=== PATIENT | female | born 1990 | race African-American/Black ===

== ENCOUNTER 2017-04-07 13:21 | Emergency (ER) | payer OTHER ==
[~2017-04-07 13:21] MED LIST: METRONIDAZOLE PO; NITROFURANTOIN100 M3 PO; NO MEDICATIONS; ROBAXIN500 MG PO; VOLTAREN50 MG PO; ZITHROMAX PO; ZOFRAN ODT4 MG PO
[2017-04-07] MEDS ORDERED: NO MEDICATIONS (13:24)
[2017-04-07 14:18] LABS: URINE SOURCE CLEAN CATCH
[2017-04-07 14:43] LABS: URINE APPEARANCE CLEAR; URINE BILIRUBIN NEG (NEG); URINE BLOOD NEG (NEG); URINE COLOR YELLOW; URINE GLUCOSE NEG (NORM); URINE KETONE NEG (NEG); URINE LEUKOCYTE ESTERASE NEG (NEG); URINE NITRATE NEG (NEG); URINE PROTEIN NEG (NEG); URINE SPECIFIC GRAVITY >=1.030 (1.003-1.035)
[2017-04-07 14:46] LABS: MICRO INDICATED? NO
[2017-04-10 15:44] LABS: CHLAMYDIA TRACH Not Detected (Not Detected); N GONOR Not Detected (Not Detected)
== END 2017-04-07 15:52 | disposition home or self-care (01) ==
LOC: SED 13:21
PROVIDERS: Physician Assistant
DX: N76.0 Acute vaginitis (principal); R30.0 Dysuria; F17.200 Nicotine dependence, unspecified, uncomplicated
CPT/HCPCS: 81003; 84703; 87210; 87491; 87591; 87808; 87905; 99283; J0696